=== PATIENT | female | born 2000 | race American Indian/Alaskan Native ===

== ENCOUNTER 2020-12-06 16:59 | Outpatient (CLI) | payer OTHER ==
[2020-12-06 17:55] VITALS: BP 110/59
[2020-12-06] MEDS ORDERED: LACTATED RINGERS 1,000 ML IV ONE (17:55)
[2020-12-06 18:10] LABS: Bilirubin,Urine NEG (Negative); Blood,Urine NEG (Negative); Color,Urine Yellow (Yellow); Mucus,Urine FEW /HPF; Protein,Urine <15 mg/dL mg/dL (Negative); Urobilinogen,Urine < 2.0 mg/dL (<2.0)
== END 2020-12-06 18:40 | disposition home or self-care (01) ==
LOC: TRG 16:59 → APU 17:03 → TRG 18:40
DX: Z34.92 Encounter for supervision of normal pregnancy, unspecified, second trimester (principal); Z3A.22 22 weeks gestation of pregnancy
CPT/HCPCS: 81001